=== PATIENT | female | born 1960 | race Caucasian/White ===

== ENCOUNTER → 2018-07-18 | Day surgery (SDC) | payer MEDICARE, MEDICAID ==
[~2018-07-18] MED LIST: Lactated Ringers 1,000 ML IV SCH; Lidocaine 1% 0 ML ONE; Lidocaine 1% with EPINEPHrine 1:100,000 20 ML MDV ONE; Lidocaine 1%/Sod Bicarbonate in NS 8.4% 1 ML Syringe IDERM PRN; Midazolam 1 MG/ML 2 ML SDV ONE; Propofol 200 MG/20 ML SDV ONE; Sodium Chloride 0.9% 10 ML Syringe FLUSH PRN; ceFAZolin 1 GM Vial ONE; fentaNYL 100 MCG/2 ML SDV ONE
[2018-07-18 10:40] VITALS: BP 124/86
--- NOTE | 2018-07-18 12:15 | PCM.PREANE ---
Preanesthetic Assessment - Procedure Proposed Procedure: excision seema cath - Anesthesia/Transfusion/Family Hx Anesthesia History: Prior Anesthesia Without Reaction Family History of Anesthesia Reaction: No Transfusion History: Prior Transfusion Without Reaction - Review of Systems General: No Symptoms Pulmonary: No Symptoms Cardiovascular: No Symptoms Gastrointestinal: No Symptoms Neurological: No Symptoms Other: Reports: Liver Problems (fatty liver), Thyroid Problems, Depression, Anxiety - Physical Assessment NPO Status Date: 07/17/18 NPO Status Time: 20:00 (glass of water at 730 with pills) O2 Sat by Pulse Oximetry: 91 Respiratory Rate: 20 Vital Signs: Last Vital Signs Temp 98.4 F 07/18/18 10:00 Pulse 86 07/18/18 10:00 Resp 20 07/18/18 10:00 BP 124/86 07/18/18 10:00 Pulse Ox 91 L 07/18/18 10:00 Height: 5 ft 3 in Weight: 128 kg ASA Class: 3 Mental Status: Alert & Oriented x3 Airway Class: Mallampati = 1 Dentition: Reports: Normal Dentition (top and bottom), Dentures Thyro-Mental Finger Breadths: 3 Mouth Opening Finger Breadths: 3 ROM/Head Extension: Full Lungs: Clear to Auscultation, Normal Respiratory Effort Cardiovascular: Regular Rate, Regular Rhythm - Allergies Allergies/Adverse Reactions: Allergies Allergy/AdvReac Type Severity Reaction Status Date / Time No Known Allergies Allergy Verified 07/17/18 15:11 - Blood Blood Available: No - Acknowledgements Anesthesia Type Planned: MAC Pt an Appropriate Candidate for the Planned Anesthesia: Yes Alternatives and Risks of Anesthesia Discussed w Pt/Guardian: Yes Pt/Guardian Understands and Agrees with Anesthesia Plan: Yes PreAnesthesia Questionnaire HEENT History: Reports: Other (See Below) Other HEENT History: impacted cerumen, candidiasis, conjunctivitis, wears glasses, has dentures Cardiovascular History: Reports: High Cholesterol Respiratory History: Reports: Asthma, COPD Gastrointestinal History: Reports: Colon Polyp, Hemorrhoids, Other (See Below) Other Gastrointestinal History: blood in stool, nausea, diarrhea, abdominal pain , fatty liver disease Genitourinary History: Reports: Urinary Incontinence 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: , Other (See Below) Other OB/BYN History: metrohaggia, vaginitis, vulvovaginitis Musculoskeletal History: Reports: Other (See Below) Other Musculoskeletal History: right hip pain, lateral epicondylitis, myalgia, myositis, lumbago Neurological History: Reports: None Psychiatric History: Reports: Bipolar, Depression, Schizophrenia Endocrine/Metabolic History: Reports: Hypothyroidism, Obesity/BMI 30+ Hematologic History: Reports: Anemia Other Hematologic History: Dx in 2013 Immunologic History: Reports: None Oncologic (Cancer) History: Reports: Breast Dermatologic History: Reports: Other (See Below) Other Dermatologic History: actinic keratosis, skin neoplasm, dermatitis, rash, tinea corporis, herpe simplex, peritoneal abcess - Past Surgical History Head Surgeries/Procedures: Reports: None Cardiovascular Surgical History: Reports: None Respiratory Surgical History: Reports: None GI Surgical History: Reports: None Female Surgical History: Reports: Section, Tubal Ligation Neurological Surgical History: Reports: None Musculoskeletal Surgical History: Reports: None Oncologic Surgical History: Reports: Lumpectomy - SUBSTANCE USE Smoking Status *Q: Former Smoker (quit 2.5 years ago) Tobacco Use Within Last Twelve Months: No Second Hand Smoke Exposure: No Days Per Week of Alcohol Use: 0 Recreational Drug Use History: No - HOME MEDS Home Medications: Home Meds Albuterol [Ventolin HFA] 2 puff INH Q4H PRN 07/17/18 [History] Albuterol/Ipratropium [Combivent Respimat] 1 puff INH QID 07/17/18 [History] Aspirin [Adult Aspirin] 81 mg PO DAILY 07/17/18 [History] Citalopram Hydrobromide [Celexa] 20 mg PO DAILY 07/17/18 [History] ClonazePAM [KlonoPIN] 0.25 mg PO BID 07/17/18 [History] Ferrous Sulfate [Ferosul] 325 g PO DAILY 07/17/18 [History] Ibuprofen [Ibu] 600 mg PO Q8H PRN 07/17/18 [History] Letrozole 2.5 mg PO DAILY 07/17/18 [History] Levothyroxine 25 mcg PO DAILY 07/17/18 [History] Multivitamin [Daily Multiple Vitamin] 1 tab PO DAILY 07/17/18 [History] Nicotine Polacrilex [Nicorette] 2 mg PO Q3H PRN 07/17/18 [History] OLANZapine 30 mg PO QPM 07/17/18 [History] Omeprazole Magnesium [Prilosec Otc] 40 mg PO QAM 07/17/18 [History] Pravastatin Sodium 80 mg PO DAILY 07/17/18 [History] Prazosin HCl [Prazosin] 2 mg PO BEDTIME 07/17/18 [History] Silver Sulfadiazine [Ssd] 1 dose TOP BID PRN 07/17/18 [History] Topiramate 100 mg PO QAM 07/17/18 [History] Topiramate 150 mg PO QPM 07/17/18 [History] Venlafaxine [Effexor XR] 150 mg PO DAILY 07/17/18 [History] buPROPion HCl [Wellbutrin Xl] 150 mg PO DAILY 07/17/18 [History] risperiDONE 2 mg PO QAM 07/17/18 [History] risperiDONE 6 mg PO QPM 07/17/18 [History] - CURRENT (IN HOUSE) MEDS Current Meds: Current Medications Lactated Ringer's (Ringers, Lactated) 1,000 mls @ 125 mls/hr IV ASDIRECTED [facility] Stop: 07/18/18 23:00 Lidocaine/Sodium Bicarbonate (Buffered Lidocaine 1% In Ns 8.4%) 0.25 ml IDERM ONETIME PRN PRN Reason: Prior to IV Start Stop: 07/18/18 18:00 Sodium Chloride (Saline Flush) 10 ml FLUSH ASDIRECTED PRN PRN Reason: Keep Vein Open Stop: 07/18/18 18:00
== END ==
LOC: JD.SDS 09:51
PROVIDERS: ATTEND Surgery
DX: Z45.2 Encounter for adjustment and management of vascular access device (principal); Z53.9 Procedure and treatment not carried out, unspecified reason; J44.9 Chronic obstructive pulmonary disease, unspecified; E66.9 Obesity, unspecified; E78.00 Pure hypercholesterolemia, unspecified; E03.9 Hypothyroidism, unspecified; Z87.891 Personal history of nicotine dependence; Z79.890 Hormone replacement therapy; Z79.82 Long term (current) use of aspirin; Z79.899 Other long term (current) drug therapy
CPT/HCPCS: J0690; J2001; J2250; J2704; J3010; J7120

== ENCOUNTER 2018-08-01 07:02 | Day surgery (SDC) | payer MEDICARE, MEDICAID ==
--- NOTE | 2018-08-01 06:49 | PCM.PREANE ---
Preanesthetic Assessment - Anesthesia/Transfusion/Family Hx Anesthesia History: Prior Anesthesia Without Reaction Family History of Anesthesia Reaction: No Transfusion History: Prior Transfusion Without Reaction Intubation History: Unknown - Review of Systems General: Fatigue (with radiation) Pulmonary: No Symptoms (COPD/Smoker:quit 2016), Cough (bronchitis with cough still present started 2 weeks ago.(on antibiotics)) Cardiovascular: Dyspnea on Exertion Gastrointestinal: No Symptoms (GERD), Decreased Appetite, Difficulty Swallowing Neurological: No Symptoms Other: Reports: None (History of right breast cancer), Liver Problems (History of fatty liver), Thyroid Problems (Hypothyroid), Sinus Problem, Depression, Anxiety - Physical Assessment NPO Status Date: 07/31/18 NPO Status Time: 20:00 Pulse: 91 O2 Sat by Pulse Oximetry: 89 Respiratory Rate: 20 Blood Pressure: 115/82 Temperature: 37.1 C Height: 1.6 m Weight: 126.552 kg ASA Class: 3 Mental Status: Alert & Oriented x3 Airway Class: Mallampati = 3 Dentition: Reports: Dentures Thyro-Mental Finger Breadths: 3 Mouth Opening Finger Breadths: 3 ROM/Head Extension: Full Lungs: Clear to Auscultation, Normal Respiratory Effort, Decreased Breath Sounds Cardiovascular: Regular Rate, Regular Rhythm, No Murmurs - Lab Values: All labs reviewed and noted and within acceptable ranges to proceed with scheduled procedure. - Imaging/EKG Impressions: Echocardiograms: EF=60-65%, Grade I diastolic dysfunction - Allergies Allergies/Adverse Reactions: Allergies Allergy/AdvReac Type Severity Reaction Status Date / Time No Known Allergies Allergy Verified 07/31/18 13:18 - Anesthesia Plan Pre-Op Medication Ordered: None - Acknowledgements Anesthesia Type Planned: MAC Pt an Appropriate Candidate for the Planned Anesthesia: Yes Alternatives and Risks of Anesthesia Discussed w Pt/Guardian: Yes Pt/Guardian Understands and Agrees with Anesthesia Plan: Yes PreAnesthesia Questionnaire HEENT History: Reports: Other (See Below) Other HEENT History: impacted cerumen, candidiasis, conjunctivitis, wears glasses, has dentures Cardiovascular History: Reports: High Cholesterol Respiratory History: Reports: Asthma, COPD Gastrointestinal History: Reports: Colon Polyp, Hemorrhoids, Other (See Below) Other Gastrointestinal History: blood in stool, nausea, diarrhea, abdominal pain , fatty liver disease Genitourinary History: Reports: Urinary Incontinence 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: , Other (See Below) Other OB/BYN History: metrohaggia, vaginitis, vulvovaginitis Musculoskeletal History: Reports: Other (See Below) Other Musculoskeletal History: right hip pain, lateral epicondylitis, myalgia, myositis, lumbago Neurological History: Reports: None Psychiatric History: Reports: Bipolar, Depression, Schizophrenia Endocrine/Metabolic History: Reports: Hypothyroidism, Obesity/BMI 30+ Hematologic History: Reports: Anemia Other Hematologic History: Dx in 2013 Immunologic History: Reports: None Oncologic (Cancer) History: Reports: Breast Dermatologic History: Reports: Other (See Below) Other Dermatologic History: actinic keratosis, skin neoplasm, dermatitis, rash, tinea corporis, herpe simplex, peritoneal abcess - Past Surgical History Head Surgeries/Procedures: Reports: None Cardiovascular Surgical History: Reports: None Respiratory Surgical History: Reports: None GI Surgical History: Reports: None Female Surgical History: Reports: Section, Tubal Ligation Neurological Surgical History: Reports: None Musculoskeletal Surgical History: Reports: None Oncologic Surgical History: Reports: None, Lumpectomy Dermatological Surgical History: Reports: None - HOME MEDS Home Medications: Home Meds Albuterol [Ventolin HFA] 2 puff INH Q4H PRN 07/17/18 [History] Albuterol/Ipratropium [Combivent Respimat] 1 puff INH QID 07/17/18 [History] Aspirin [Adult Aspirin] 81 mg PO DAILY 07/17/18 [History] Citalopram Hydrobromide [Celexa] 20 mg PO DAILY 07/17/18 [History] ClonazePAM [KlonoPIN] 0.25 mg PO BID 07/17/18 [History] Ferrous Sulfate [Ferosul] 325 g PO DAILY 07/17/18 [History] Ibuprofen [Ibu] 600 mg PO Q8H PRN 07/17/18 [History] Letrozole 2.5 mg PO DAILY 07/17/18 [History] Levothyroxine 25 mcg PO DAILY 07/17/18 [History] Multivitamin [Daily Multiple Vitamin] 1 tab PO DAILY 07/17/18 [History] Nicotine Polacrilex [Nicorette] 2 mg PO Q3H PRN 07/17/18 [History] OLANZapine 30 mg PO QPM 07/17/18 [History] Omeprazole Magnesium [Prilosec Otc] 40 mg PO QAM 07/17/18 [History] Pravastatin Sodium 80 mg PO DAILY 07/17/18 [History] Prazosin HCl [Prazosin] 2 mg PO BEDTIME 07/17/18 [History] Silver Sulfadiazine [Ssd] 1 dose TOP BID PRN 07/17/18 [History] Topiramate 100 mg PO QAM 07/17/18 [History] Topiramate 150 mg PO QPM 07/17/18 [History] Venlafaxine [Effexor XR] 150 mg PO DAILY 07/17/18 [History] buPROPion HCl [Wellbutrin Xl] 150 mg PO DAILY 07/17/18 [History] risperiDONE 2 mg PO QAM 07/17/18 [History] risperiDONE 6 mg PO QPM 07/17/18 [History] - CURRENT (IN HOUSE) MEDS Current Meds: Current Medications Lactated Ringer's (Ringers, Lactated) 1,000 mls @ 125 mls/hr IV ASDIRECTED [facility] Stop: 08/01/18 23:00 Lidocaine/Sodium Bicarbonate (Buffered Lidocaine 1% In Ns 8.4%) 0.25 ml IDERM ONETIME PRN PRN Reason: Prior to IV Start Stop: 08/01/18 18:00 Sodium Chloride (Saline Flush) 10 ml FLUSH ASDIRECTED PRN PRN Reason: Keep Vein Open Stop: 08/01/18 16:00 Discontinued Medications Lactated Ringer's (Ringers, Lactated) 1,000 mls @ 125 mls/hr IV ASDIRECTED [facility] [place] Stop: 07/25/18 23:00 Lidocaine/Sodium Bicarbonate (Buffered Lidocaine 1% In Ns 8.4%) 0.25 ml IDERM ONETIME PRN PRN Reason: Prior to IV Start Stop: 07/25/18 18:00 Sodium Chloride (Saline Flush) 10 ml FLUSH ASDIRECTED PRN PRN Reason: Keep Vein Open Stop: 07/25/18 18:00
[~2018-08-01 07:02] MED LIST changes: -Lidocaine 1% 0 ML ONE; -Lidocaine 1% with EPINEPHrine 1:100,000 20 ML MDV ONE; -Midazolam 1 MG/ML 2 ML SDV ONE; -Propofol 200 MG/20 ML SDV ONE; -ceFAZolin 1 GM Vial ONE; -fentaNYL 100 MCG/2 ML SDV ONE
[2018-08-01] MEDS ORDERED: Bupivacaine 0.5% 30 ML SDV ONE (07:07)
[2018-08-01] MEDS ORDERED: Lidocaine 1% with EPINEPHrine 1:100,000 20 ML MDV ONE ×2 (07:07→08:21)
[2018-08-01] MEDS ORDERED: ceFAZolin 1 GM Vial ONE (07:09)
[2018-08-01] MEDS ORDERED: Propofol 200 MG/20 ML SDV ONE (07:09)
[2018-08-01] MEDS ORDERED: Lidocaine 1% 0 ML ONE (07:09)
[2018-08-01] MEDS ORDERED: Ondansetron 4 MG/2 ML SDV ONE (07:09)
[2018-08-01] MEDS ORDERED: fentaNYL 100 MCG/2 ML SDV ONE (07:10)
[2018-08-01] MEDS ORDERED: Midazolam 1 MG/ML 2 ML SDV ONE (07:10)
[2018-08-01] MEDS: Lactated Ringers 1,000 ML IV SCH ×2 (07:25→10:06)
[2018-08-01] MEDS ORDERED: Albuterol 0.083% 2.5 MG/3 ML Neb Soln NEB ONE ×2 (07:50→09:15)
--- NOTE | 2018-08-01 08:51 | PCM.OPNOTE ---
- General Post-Op/Procedure Note Date of Surgery/Procedure: 08/01/18 Operative Procedure(s): Excision of portacath Findings: intact portacath Pre Op Diagnosis: history of breast cancer Post-Op Diagnosis: same Anesthesia Technique: MAC Primary Surgeon: Katharine Garrett Anesthesia Provider: Kay Figueroa Customs And Border Protection Officer: Colleen Melendez Pathology: none Fluid Replacement, Intraop: 800 Output, Urine Amount: 0 EBL in mLs: 2 Complications: none apparent Condition: Good
--- NOTE | 2018-08-01 08:52 | PCM.PRNOTE ---
- Free Text/Narrative Note: Operative Report Date of surgery: August 01, 2018 Preoperative diagnosis: . History of breast cancer with Port-A-Cath in place Postoperative diagnosis: History of breast cancer Procedure: Excision of Port-A-Cath Surgeon: Dr. Katharine Garrett Anesthesia: MAC Sales And Marketing Specialist: Kay Figueroa CRNA Estimated blood loss: 2 mL IV fluids: 800 mL Urine output: 0 mL Drains and lines: None Findings: . Intact Port-A-Cath in the left chest Pathology: None Indication for the procedure: is a 57-year-old lady with a history of breast cancer. She had a Port-A-Cath placed during her initial surgery for cancer. The port was never accessed, however. The oncology team did not wish to proceed with any chemotherapy and was requesting excision of the port. Risks of infection, bleeding, and localized numbness were discussed. Written consent was obtained. Due to the operative report noting a very deep placement of the port as well as the patient's mental illness comorbidities, we opted to proceed with the procedure and operating room with a MAC sedation to facilitate excision of the port. Description of the procedure: The patient was taken to the operating room and placed in supine position on the operating table. She successful induction of MAC anesthesia. 3g Ancef were given IV per SCI P protocol. Her chest was then prepped and draped in standard surgical fashion. Surgical timeout was performed. We began by getting local anesthetic around the port site and in the area of the previous incision on the left chest. We then made an incision in the area of the previous scar and continued our dissection down to the level of the port and its surrounding capsule using the Bovie device. Once the port had been seen. Its suture attachments were taken down using the Bovie device. A suture was then placed around the opening where the catheter was exiting into the pocket. The catheter was removed as well as suture was tied down to prevent any backbleeding from the vein. We then inspected for hemostasis. There was no significant bleeding. We proceeded to close down the space using 3-0 Vicryl deep suture. The incision was then closed in a layered fashion using a 3-0 Vicryl deep dermal suture and a 4-0 Monocryl running subcuticular stitch. Dermabond surgical glue was then placed over the incision. The patient tolerated the procedure well. There were no immediate competitions. Disposition: Stable to PACU Katharine Garrett MD General Surgery
--- NOTE | 2018-08-01 08:53 | PCM48HPAN ---
Post Anesthesia Note - EVALUATION WITHIN 48HRS OF ANESTHETIC Vital Signs in Normal Range: Yes Patient Participated in Evaluation: Yes Respiratory Function Stable: Yes Airway Patent: Yes Cardiovascular Function Stable: Yes Hydration Status Stable: Yes Pain Control Satisfactory: Yes Nausea and Vomiting Control Satisfactory: Yes Mental Status Recovered: Yes
[2018-08-01 12:15] VITALS: BP 113/64
== END 2018-08-01 10:52 | disposition home or self-care (01) ==
LOC: JD.SDS 07:02
PROVIDERS: ATTEND Surgery
DX: Z45.2 Encounter for adjustment and management of vascular access device (principal); Z85.3 Personal history of malignant neoplasm of breast; E78.5 Hyperlipidemia, unspecified; K64.8 Other hemorrhoids; J44.9 Chronic obstructive pulmonary disease, unspecified; K21.9 Gastro-esophageal reflux disease without esophagitis; E03.9 Hypothyroidism, unspecified; F31.9 Bipolar disorder, unspecified; E66.9 Obesity, unspecified; E78.00 Pure hypercholesterolemia, unspecified; Z79.82 Long term (current) use of aspirin; Z79.899 Other long term (current) drug therapy; Z87.891 Personal history of nicotine dependence; Z80.3 Family history of malignant neoplasm of breast; Z68.42 Body mass index [BMI] 45.0-49.9, adult
CPT/HCPCS: 36589; 94640; J0690; J2250; J2405; J3010; J7120; 00400; J2001; J2704; J3490

== ENCOUNTER 2020-10-28 14:40 | Emergency (ER) | payer MEDICARE, MEDICAID ==
[2020-10-28 14:50] VITALS: BP 95/62; PULSE 88
[2020-10-28] MEDS ORDERED: HYDROmorphone 0.5 MG/0.5 ML Syringe IVPUSH ONE (15:12)
--- NOTE | 2020-10-28 15:28 | EDM.PDOC ---
ED HPI GENERAL MEDICAL PROBLEM - General Chief Complaint: Lower Extremity Injury/Pain Stated Complaint: RT UPPER LEG PAIN Time Seen by Provider: 10/28/20 15:03 Source of Information: Reports: Patient, RN Notes Reviewed History Limitations: Reports: No Limitations - History of Present Illness INITIAL COMMENTS - FREE TEXT/NARRATIVE: Patient is a 59-year-old female who presents to the ER for her right upper leg pain. Note she has had pain in her leg for the last month, that she attributed to possible sciatic pain. However it has worsened over the last 3 days, she noted that it used to just be there when she would walk, then be a piercing sharp pain, but now she notes that it is present even while at rest. And she notes that is increasingly more painful to bear weight. She has not had any trauma to the area, or any near slips trips or falls. States the pain does seem to radiate down her leg, and wrap medially. She is not had any numbness or tingling to her toes. She is worried about the possibility of a blood clot at this time. She takes baby aspirin for regular daily meds but is on no actual blood thinner. Patient did take the medication for muscle spasm earlier today, this seemed to help a little bit. Patient denies any other sick-like symptoms, fever/chills, cough/shortness of breath, nausea/vomiting/diarrhea. Right Leg Pain Score (Numeric/FACES): 2 - Related Data Allergies Allergy/AdvReac Type Severity Reaction Status Date / Time No Known Allergies Allergy Verified 10/28/20 14:52 Home Meds: Home Meds Albuterol [Ventolin HFA] 2 puff INH Q4H PRN 07/17/18 [History] Albuterol/Ipratropium [Combivent Respimat] 1 puff INH QID 07/17/18 [History] Aspirin [Adult Aspirin] 81 mg PO DAILY 07/17/18 [History] Citalopram Hydrobromide [Celexa] 20 mg PO DAILY 07/17/18 [History] ClonazePAM [KlonoPIN] 0.25 mg PO BID 07/17/18 [History] Ferrous Sulfate [Ferosul] 325 g PO DAILY 07/17/18 [History] Letrozole 2.5 mg PO DAILY 07/17/18 [History] Levothyroxine 25 mcg PO DAILY 07/17/18 [History] Multivitamin [Daily Multiple Vitamin] 1 tab PO DAILY 07/17/18 [History] OLANZapine 30 mg PO QPM 07/17/18 [History] Omeprazole Magnesium [Prilosec Otc] 40 mg PO QAM 07/17/18 [History] Pravastatin Sodium 80 mg PO DAILY 07/17/18 [History] Prazosin HCl [Prazosin] 2 mg PO BEDTIME 07/17/18 [History] Silver Sulfadiazine [Ssd] 1 dose TOP BID PRN 07/17/18 [History] Topiramate 100 mg PO QAM 07/17/18 [History] Topiramate 150 mg PO QPM 07/17/18 [History] Venlafaxine [Effexor XR] 150 mg PO DAILY 07/17/18 [History] buPROPion HCL [Wellbutrin Xl] 150 mg PO DAILY 07/17/18 [History] risperiDONE 2 mg PO QAM 07/17/18 [History] risperiDONE 6 mg PO QPM 07/17/18 [History] Acetaminophen 1 mg PO ASDIRECTED PRN 12/24/18 [History] Azithromycin [Zithromax] 250 mg PO DAILY #4 tab 12/24/18 [Rx] Hydrocodone/Acetaminophen [Vicodin Hp 10-300 mg Tablet] 1 tab PO Q6H PRN #15 tablet 10/28/20 [Rx] predniSONE 20 mg PO ASDIRECTED #15 tab 10/28/20 [Rx] Past Medical History HEENT History: Reports: Other (See Below) Other HEENT History: impacted cerumen, candidiasis, conjunctivitis, wears glasses, has dentures Cardiovascular History: Reports: High Cholesterol Respiratory History: Reports: Asthma, COPD Gastrointestinal History: Reports: Colon Polyp, Hemorrhoids, Other (See Below) Other Gastrointestinal History: blood in stool, nausea, diarrhea, abdominal pain, fatty liver disease Genitourinary History: Reports: Urinary Incontinence 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: , 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 Below) 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 History: metrohaggia, vaginitis, vulvovaginitis Musculoskeletal History: Reports: Other (See Below) Other Musculoskeletal History: right hip pain, lateral epicondylitis, myalgia, myositis, lumbago Psychiatric History: Reports: Bipolar, Depression, Schizophrenia Endocrine/Metabolic History: Reports: Hypothyroidism, Obesity/BMI 30+ Hematologic History: Reports: Anemia Other Hematologic History: Dx in 2013 Oncologic (Cancer) History: Reports: Breast Dermatologic History: Reports: Other (See Below) Other Dermatologic History: actinic keratosis, skin neoplasm, dermatitis, rash, tinea corporis, herpes simplex, peritoneal abcess - Past Surgical History Female Surgical History: Reports: Section, Tubal Ligation Oncologic Surgical History: Reports: Lumpectomy Social & Family History - Family History HEENT: Reports: None Cardiac: Reports: None Respiratory: Reports: COPD Other Respiratory Family Hisory: grandpa Psychiatric: Reports: Bipolar, Schizophrenia Other Psychiatric Family History: sister Oncologic: Reports: Esophageal, Liver, Skin - Tobacco Use Tobacco Use Status *Q: Former Tobacco User Used Tobacco, but Quit: Yes Month/Year Tobacco Last Used: 06/03/2016 - Caffeine Use Caffeine Use: Reports: Coffee - Recreational Drug Use Recreational Drug Use: No Review of Systems - Review of Systems Review Of Systems: Comprehensive ROS is negative, except as noted in HPI. ED EXAM, GENERAL - Physical Exam Exam: See Below Exam Limited By: No Limitations General Appearance: Alert, WD/WN, No Apparent Distress, Anxious (generalized) Respiratory/Chest: No Respiratory Distress, Lungs Clear, Normal Breath Sounds, No Accessory Muscle Use, Chest Non-Tender Cardiovascular: Normal Peripheral Pulses, Regular Rate, Rhythm, No Edema Peripheral Pulses: 2+: Radial (L), Radial (R) Neurological: Alert, Oriented, Normal Cognition, No Motor/Sensory Deficits Psychiatric: Normal Affect, Normal Mood Skin Exam: Warm, Dry, Intact, Normal Color, No Rash Course - Vital Signs Last Recorded V/S: Last Vital Signs Temp 97.4 F 10/28/20 14:49 Pulse 88 10/28/20 14:49 Resp 22 H 10/28/20 14:49 BP 95/62 10/28/20 14:49 Pulse Ox 91 L 10/28/20 14:49 - Orders/Labs/Meds Meds: Medications Discontinued Medications Generic Name Dose Route Start Last Admin Trade Name Freq PRN Reason Stop Dose Admin Hydromorphone HCl 0.5 mg 10/28/20 15:12 10/28/20 15:23 Hydromorphone 0.5 Mg/0.5 Ml Syringe IVPUSH 10/28/20 15:13 0.5 mg ONETIME ONE Administration - Re-Assessments/Exams Free Text/Narrative Re-Assessment/Exam: 10/28/20 15:31 Patient presents to the ED for her right leg pain, this is most likely musculoskeletal in etiology, but US has been ordered to r/o blood clot and will give her 0.5mg IV Dilaudid for pain management. 10/28/20 15:59 The patient's ultrasound has been done, there is no findings of DVT within the right lower extremity or within the left common femoral vein. We will treat her as ongoing sciatic pain, and have her follow-up with her regular care provider next week. Departure - Departure Time of Disposition: 15:59 Disposition: Home, Self-Care 01 Condition: Good Clinical Impression: Right thigh pain Sciatica neuralgia Qualifiers: Laterality: right Qualified Code(s): M54.31 - Sciatica, right side - Discharge Information *PRESCRIPTION DRUG MONITORING PROGRAM REVIEWED*: No *COPY OF PRESCRIPTION DRUG MONITORING REPORT IN PATIENT KESHAWN: No Instructions: Sciatica, [id number] Referrals: Mayela Manzo NP [Primary Care Provider] - Forms: ED Department Discharge Additional Instructions: You were seen in this ER for your right leg pain. Ultrasound was performed at today's visit and this is negative for any sign of a DVT or blood clot within your right lower leg. Your leg pain is most likely due to sciatic nerve aggravation, you have been given a prescription for prednisone, you will need to take as directed until gone. You can continue to take the muscle relaxant you have at home already, this seems to provide you benefit. This medication was electronically sent to the [facility] pharmacy located on [address]. You were given a prescription for a strong pain medication, hydrocodone/acetam inophen 10/325 mg, please take 1 tab every 6 hours as needed for pain not relieved by Tylenol or ibuprofen alone. Please note this medication does contain Tylenol in it, so do not take more than 4000 mg in a 24-hour time span. These medications can be addictive, so please take as few as possible to achieve adequate pain control. These meds can also be quite constipating, recommend that you increase your oral fluid intake and take a stool softener like MiraLAX while taking these medications. Do not drive while taking this medication. Please follow-up with your regular care provider, sometime next week to make sure that your symptoms are getting better as expected. Please do not hesitate to return to the ER if your symptoms change or worsen. Sepsis Event Note (ED) - Evaluation Sepsis Screening Result: No Definite Risk - Focused Exam Vital Signs: Vital Signs Temp Pulse Resp BP Pulse Ox 10/28/20 14:49 97.4 F 88 22 H 95/62 91 L
--- NOTE | 2020-10-28 15:58 | US ---
Right lower extremity deep venous ultrasound: Duplex and color Doppler evaluation was obtained of the right common femoral, proximal greater saphenous, superficial femoral, popliteal, posterior tibial and peroneal veins. Left common femoral vein was also evaluated. Comparison: No prior venous imaging is available. Findings: Normal phasic flow, augmentation and compression is seen. Impression: 1. No findings of deep venous thrombosis within the right lower extremity or within the left common femoral vein. Diagnostic code #1
== END 2020-10-28 16:42 | disposition home or self-care (01) ==
LOC: JD.ED 14:40
DX: M79.651 Pain in right thigh (principal); M54.31 Sciatica, right side; E78.00 Pure hypercholesterolemia, unspecified; J44.9 Chronic obstructive pulmonary disease, unspecified; Z87.891 Personal history of nicotine dependence; Z79.899 Other long term (current) drug therapy
CPT/HCPCS: 93971; 96374; 99283; J1170

== ENCOUNTER 2023-04-10 06:16 | Emergency (ER) | payer MEDICARE, MEDICAID ==
[2023-04-10 07:08] LABS: BASOPHILS PERCENT AUTO 0.2 % (0.0-1.0); HEMATOCRIT 44.6 % (37.0-47.0); IMMATURE GRAN ABSOLUTE AUTO 0.02 K/mm3 (0.00-0.05); IMMATURE GRAN PERCENT AUTO 0.4 % (0.0-0.4); LYMPHOCYTES ABSOLUTE AUTO 0.9 K/mm3 (1.0-4.8); LYMPHOCYTES PERCENT AUTO 18.5 % (24.0-44.0); MEAN CORPUSCULAR HEMOGLOBIN 31.7 pg (28.0-32.0); MEAN CORPUSCULAR HGB CONC 33.6 g/dl (32.0-36.0); MEAN CORPUSCULAR VOLUME 94.3 fl (83.0-99.0); MEAN PLATELET VOLUME 9.9 fl (9.4-12.3); MONOCYTES ABSOLUTE AUTO 0.4 K/mm3 (0.0-0.8); MONOCYTES PERCENT AUTO 7.9 % (0.0-8.0); NEUTROPHILS ABSOLUTE AUTO 3.6 K/mm3 (1.8-7.7); PLATELET COUNT,PLT 141 K/mm3 (150-400); RED BLOOD CELL COUNT 4.73 M/mm3 (4.10-5.30); WHITE BLOOD CELL COUNT,WBC 4.92 K/mm3 (3.9-11.3)
[2023-04-10 07:23] LABS: INR 1.02; PROTHROMBIN TIME 10.9 SECONDS (9.7-12.0)
[2023-04-10 07:39] LABS: A/G RATIO 1.2 (1-2); ALBUMIN 3.6 g/dl (3.4-5.0); ANION GAP 12.7 (5-15); BILIRUBIN TOTAL 0.4 mg/dL (0.2-1.0); BUN/CREATININE RATIO 14.4 (14-18); CALCIUM 8.6 mg/dL (8.5-10.1); CREATININE 0.9 mg/dL (0.55-1.02); EST CRCL DRUG DOSING (CG) 52.93 mL/min; POTASSIUM,K 3.7 mEq/L (3.5-5.1); PROTEIN TOTAL,TP 6.6 g/dl (6.4-8.2)
[2023-04-10 08:18] VITALS: BP 122/83; PULSE 86
== END 2023-04-10 08:17 | disposition home or self-care (01) ==
LOC: JD.ED 06:16
DX: K64.8 Other hemorrhoids (principal); E78.00 Pure hypercholesterolemia, unspecified; J44.9 Chronic obstructive pulmonary disease, unspecified; K21.9 Gastro-esophageal reflux disease without esophagitis; E03.9 Hypothyroidism, unspecified; E66.9 Obesity, unspecified; Z68.42 Body mass index [BMI] 45.0-49.9, adult; Z87.891 Personal history of nicotine dependence; Z98.890 Other specified postprocedural states; Z79.899 Other long term (current) drug therapy
CPT/HCPCS: 36415; 80053; 85025; 85610; 99283; 99284

== ENCOUNTER 2023-09-19 13:26 | Day surgery (SDC) | payer MEDICARE, MEDICAID ==
[2023-09-19] MEDS: Polymyxin B/Trimethoprim 10 ML Bottle EYERT SCH (13:39)
[2023-09-19] MEDS: Brimonidine 0.2% Ophth Soln 5 ML Bottle EYERT SCH (13:45)
[2023-09-19] MEDS: Phenylephrine 2.5% Ophth Soln 2 ML Bot EYERT SCH (13:50)
[2023-09-19] MEDS: Tropicamide 1% Ophth Soln 3 ML Bottle EYERT SCH (13:55)
[2023-09-19] MEDS ORDERED: Ondansetron 4 MG/2 ML SDV IVPUSH PRN (13:59)
[2023-09-19] MEDS: Tetracaine HCl/PF 0.5% 4 ML Bottle EYEBOTH SCH (14:45)
[2023-09-19] MEDS: Pilocarpine 4% Ophth Soln 15 ML Bot EYERT SCH (14:57)
[2023-09-19] MEDS: Lidocaine 1% PF 2 ML SDV INJECT SCH (14:57)
[2023-09-19] MEDS: Cefuroxime 10 MG/ML SYRINGE EYERT SCH (14:57)
[2023-09-19 15:47] VITALS: BP 127/81; PULSE 76
== END 2023-09-19 15:45 | disposition home or self-care (01) ==
LOC: JD.SDS 13:26
PROVIDERS: ATTEND Ophthalmology
DX: E11.36 Type 2 diabetes mellitus with diabetic cataract (principal); H25.813 Combined forms of age-related cataract, bilateral; H40.3 Glaucoma secondary to eye trauma; H16.103 Unspecified superficial keratitis, bilateral; H16.223 Keratoconjunctivitis sicca, not specified as Sjogren's, bilateral; H02.831 Dermatochalasis of right upper eyelid; H02.834 Dermatochalasis of left upper eyelid; H57.813 Brow ptosis, bilateral; Z87.891 Personal history of nicotine dependence; Z79.899 Other long term (current) drug therapy; Z98.890 Other specified postprocedural states
CPT/HCPCS: 66982; A9270; J0697; 00142; J3490

== ENCOUNTER 2023-10-24 14:21 | Day surgery (SDC) | payer MEDICARE, MEDICAID ==
[2023-10-24 15:27] VITALS: PULSE 78
[2023-10-24] MEDS: Polymyxin B/Trimethoprim 10 ML Bottle EYELF SCH (15:27)
[2023-10-24] MEDS: Brimonidine 0.2% Ophth Soln 5 ML Bottle EYELF SCH (15:32)
[2023-10-24] MEDS: Phenylephrine 2.5% Ophth Soln 2 ML Bot EYELF SCH (15:37)
[2023-10-24] MEDS: Tropicamide 1% Ophth Soln 3 ML Bottle EYELF SCH (15:43)
[2023-10-24] MEDS: Tetracaine HCl/PF 0.5% 4 ML Bottle EYEBOTH SCH (16:32)
[2023-10-24] MEDS: Lidocaine 1% PF 2 ML SDV INJECT SCH (16:54)
[2023-10-24] MEDS: Cefuroxime 10 MG/ML SYRINGE EYELF SCH (17:08)
[2023-10-24] MEDS: Pilocarpine 4% Ophth Soln 15 ML Bot EYELF SCH (17:08)
[2023-10-24 17:22] VITALS: BP 141/97
== END 2023-10-24 17:16 | disposition home or self-care (01) ==
LOC: JD.SDS 14:21
PROVIDERS: ATTEND Ophthalmology
DX: E11.36 Type 2 diabetes mellitus with diabetic cataract (principal); H25.812 Combined forms of age-related cataract, left eye; H21.81 Floppy iris syndrome; H21.42 Pupillary membranes, left eye; K21.9 Gastro-esophageal reflux disease without esophagitis; J44.9 Chronic obstructive pulmonary disease, unspecified; E03.9 Hypothyroidism, unspecified; Z79.890 Hormone replacement therapy; Z79.899 Other long term (current) drug therapy
CPT/HCPCS: 66982; A9270; J0697; J3490